=== PATIENT | male | born 1990 | race Hispanic/Latino ===

== ENCOUNTER 2020-10-24 13:33 | Emergency (ER) | payer MEDICAID ==
[~2020-10-24] VITALS: Ht 180.3 cm; Wt 75.0 kg
[2020-10-24] MEDS ORDERED: ALL DAY10 MG PO (16:04)
[2020-10-24 16:22] VITALS: BP 110/63
== END 2020-10-24 16:23 | disposition home or self-care (01) ==
LOC: ED 13:33
DX: M25.561 Pain in right knee (principal); M25.551 Pain in right hip; L23.9 Allergic contact dermatitis, unspecified cause